=== PATIENT | male | born 1960 | race Caucasian/White ===

== ENCOUNTER 2021-11-15 14:22 | Observation (INO) | payer OTHER ==
[~2021-11-15] VITALS: Ht 188 cm; Wt 105.0 kg
--- NOTE | 2021-11-15 14:22 | NUR ---
ARRIVES VIA EMS, AWAKE, ALERT AND ORIENTED. ASSITED WITH CLEANING PT OF YELLOW LOOSE STOOL, STATES HE HAS HAD 4-5 DIARRHEA STOOLS FOR 3-4 DAYS
--- NOTE | 2021-11-15 14:35 | NUR ---
PATIENT BROUGHT TO ROOM VIA EMS. BEDSIDE REPORT TAKEN. PATIENT CONNECTED TO MONITOR. VSS. MD NOTIFIED OF PATIENT STATUS.
[2021-11-15 15:05] LABS: HEMATOCRIT 43.8 % (39.0-50.0); HEMOGLOBIN 14.1 g/dl (14.0-18.0); IMMATURE GRANULOCYTES 0.4 % (0.0-5.0); MEAN CELL VOLUME 84.6 fL CALC (80.0-100.0); MEAN CORPUSCULAR HGB 27.2 pG CALC (26.0-32.0); MEAN CORPUSCULAR HGB CONC 32.2 g/dL CAL (32.0-36.0); NEUT# 3.67 thou/uL (1.82-7.42); RED BLOOD COUNT 5.18 mill/uL (4.70-6.10); RED CELL DISTRI WIDTH 14.6 % (11.5-15.5)
[2021-11-15 15:21] LABS: ALBUMIN 4.1 g/dL (3.2-5.0); ALKALINE PHOSPHATASE 50 u/l (38-126); ANION GAP 16 (6-22 (CALC)); BILIRUBIN, TOTAL 0.6 mg/dL (0.0-1.4); BUN 20 mg/dL (8-23); BUN/CREATININE RATIO 14 (12-20 (CALC)); CARBON DIOXIDE 23 mmol/l (22-30); CHLORIDE 92 mmol/l (95-108); CREATININE 1.4 mg/dL (0.7-1.3); ETHYL ALCOHOL 0 mg/dl (0-30); GFR 52 ML/MIN (>=60 (CALC)); GFR FOR AFR.AMER. > 60 ML/MIN (>=60 (CALC)); LIPASE 199 u/l (23-300); MAGNESIUM 1.4 mg/dL (1.6-2.3); POTASSIUM 3.6 mmol/l (3.5-5.1); SGOT/AST 73 u/l (19-48); SODIUM 127 mmol/l (137-146); TOTAL PROTEIN 7.3 g/dL (6.3-8.2)
[2021-11-15 15:28] LABS: ACT PARTIAL THROMBO TIME 27.9 SECONDS (20.0-32.5); INTERNATIONAL NORMALIZED RATIO 1.1 RATIO (0.7-1.3)
--- NOTE | 2021-11-15 15:45 | NUR ---
Reassessment of patient completed. No distress noted.
--- NOTE | 2021-11-15 16:45 | NUR ---
Reassessment of patient completed. No distress noted.
--- NOTE | 2021-11-15 17:17 | NUR ---
Reassessment of patient completed. No distress noted.
[2021-11-15 18:32] VITALS: BP 115/74
--- NOTE | 2021-11-15 18:32 | NUR ---
PATIENT RECEIVED FROM ED AT THIS TIME. PATIENT ALERT AND ORIENTED AND GIVEN ROOM ORIENTTATION AND SAFETY AND FALL POLICY ORIENTTATION. PATIENT DEINES ANY PAIN AT THIS TIME AND OR NEEDS. DONOR SERVICES TECHNICIAN DONE SEE INTERVENTIONS. LUNG DUFF ARE CLEAR TELE MONITOR ON AND BEING MONITORED BY ED. 02 ON AT 2 LITERS AND SPO2 AT THIS TIME IS 955. PATIENT GIVEN EDUCATION ON CURRENT MEDICATION AND VERBALIZES UNDERSTANDING OF MEDICATIONS. PATIENT PRESENTS WITHOUT ANY EDEMA AND STATES LAST BOWEL MOVEMENT WAS THIS AM AND BOWEL SOUNDS ARE PRESENT. WILL CONTIUE TO MONITOR.
--- NOTE | 2021-11-15 18:53 | NUR ---
ESCORTED PATIENT TO ROOM 291. REPORT CALLED TO JOYCE PRIOR TO TRANSPORT AND HAND OFF PERFORMED AT BEDSIDE ALSO. PATIENT ALERT AND ORIENTED. NAD.
[2021-11-15 22:29] LABS: URINE BILIRUBIN - DIPSTICK NEGATIVE (NEGATIVE); URINE BLOOD DIPSTICK NEGATIVE (NEGATIVE); URINE COLOR YELLOW; URINE GLUCOSE - DIPSTICK NEGATIVE (NEGATIVE); URINE KETONE 15 mg/dL (NEGATIVE); URINE LEUK ESTERASE NEGATIVE (NEGATIVE); URINE PH 5.5 (4.5-8.0); URINE PROTEIN - DIPSTICK NEGATIVE (NEG-TRACE); URINE UROBILINOGEN - DIPSTICK 0.2 E.U./dL (0.2)
[2021-11-15 22:30] LABS: URINE NITRITE - DIPSTICK NEGATIVE (Negative)
[2021-11-16] VITALS: BP 122/71
--- NOTE | 2021-11-16 00:16 | NUR ---
PATIENT RESTING IN BED AT THIS TIME. PATIENT AWAKE AND WATCHING TV. PATIENT DENIES ANY PAIN OR SHORTNESS OF BREATH AT THIS TIME. SIDERAILSA ARE UP CALL LIGHT IS WIHTIN REACH. 02 REMAINS ON AT 2L AND TELE MONITOR ON AND BEING MONITORED BY ED.
[2021-11-16 04:00] VITALS: BP 127/76
--- NOTE | 2021-11-16 04:15 | NUR ---
PATIENT RESTING IN BED AT THIS TIME. PATIENT DENIES ANY PAIN O2 REMAINS ON NO COUGHING NOTED. SIDERAILS ARE UP X [address] AND BEING MONITOR BY ED. NO COUGHING NOTED .
[2021-11-16] MEDS ORDERED: CARVEDILOL25 MG PO (08:21)
[2021-11-16] MEDS ORDERED: CRESTOR5 MG PO (08:21)
[2021-11-16] MEDS ORDERED: [UNRECOGNIZED DRUG - OTHER] PO (08:21)
[2021-11-16] MEDS ORDERED: CARDIZEM30 MG PO (08:22)
[2021-11-16] MEDS ORDERED: OMEPRAZOLE20 M1 PO (08:22)
[2021-11-16] MEDS ORDERED: LISINOPRIL10 MG PO (08:22)
[2021-11-16] MEDS ORDERED: PROSTATE HEALTH PO (08:23)
[2021-11-16] MEDS ORDERED: AMOXICILLIN125 MG PO (08:23)
[2021-11-16] MEDS ORDERED: MULTI VIT PO (08:23)
[2021-11-16] MEDS ORDERED: ASPIRIN81 MG PO (08:23)
[2021-11-16] MEDS ORDERED: FISH OIL1000 MG PO (08:24)
--- NOTE | 2021-11-16 09:00 | NUR ---
PT IN BED WATCHING TV. NO DISTRESS NOTED. EVEN AND UNLABORED RESPIRATIONS; CLEAR LUNG SOUNDS. ACTIVE BOWEL SOUNDS UPON AUSCULTATION. PT DENIES PAIN AT THE MOMENT. CALL LIGHT WITHIN REACH.
[2021-11-16 09:45] VITALS: BP 162/89
--- NOTE | 2021-11-16 12:00 | NUR ---
PT IN BED. NO DISTRESS NOTED. PT DENIES PAIN AT THE MOMENT. CALL LIGHT WITHIN REACH.
--- NOTE | 2021-11-16 16:00 | NUR ---
PT WAS READY TO BE DISCHARGED; BUT PRESENT A TEMP OF 102.2; NOTIFIED AND ORDER TYLENOL. WILL MONITOR TEMPERATURE. CALL LIGHT WITHIN REACH.
[2021-11-16 16:06] VITALS: BP 137/81
--- NOTE | 2021-11-16 16:36 | NUR ---
DR ELIZABETH NOTIFIEF OF TEMP OF 102.2; MD MARIE PT TO STAY AND RICKIE D/Jimmy PT TO BE UPDATED ON POC
--- NOTE | 2021-11-16 17:45 | NUR ---
PT IN BED. NO DISTRESS NOTED. TEMPERATURE OF 99.1. PT GETTING READY FOR DISCHARGED. PT DENIES ANY PAIN. CALL LIGHT WITHIN REACH.
--- NOTE | 2021-11-16 17:59 | NUR ---
DR ELIZABETH NOTIFIED OF CURRENT TEMP AND THE PTS DESIRE OF STILL WANTING TO LEAVE ALTHOUGH HE WAS ENCOURAGED TO STAY. APPROVAL FROM TO D/C
--- NOTE | 2021-11-16 19:00 | NUR ---
Discharge instructions given. Patient verbalizes understanding of same. Discharged in stable condition via Wheelchair to Home with staff. All belongings sent with pt. Pt encouraged to return with new or worsening symptoms.
--- NOTE | 2021-11-17 09:28 | NUR ---
PRELIM BLOOD CX SHOWS BACILLUS SPECIES IN 1 BOTTLE. REPORTED TO RENE. PER MICROBIOLOGIST, THIS IS A CONTAMINANT.
== END 2021-11-16 19:00 | disposition home or self-care (01) | DRG 640 ==
LOC: ED 14:22 → ED-I 17:20 → ED 17:44 → MS2 17:45
PROVIDERS: ADMIT Internal Medicine; ATTEND Internal Medicine
DX: E87.1 Hypo-osmolality and hyponatremia (principal); U07.1 COVID-19; N17.9 Acute kidney failure, unspecified; E83.42 Hypomagnesemia; E87.6 Hypokalemia; R09.02 Hypoxemia; S00.03XA Contusion of scalp, initial encounter; I10 Essential (primary) hypertension; E83.119 Hemochromatosis, unspecified; W07.XXXA Fall from chair, initial encounter
CPT/HCPCS: G0378; J3475; Q9967